=== PATIENT | male | born 1960 | race Caucasian/White ===

== ENCOUNTER 2019-09-17 07:59 | Outpatient (CLI) | payer BC ==
--- NOTE | 2019-09-17 08:33 | RAD ---
XR Cervical Spine 4 View Min History: Cervical spondylosis Comparison: Cervical spine MRI 2014 Findings: Moderate degenerative disc space height loss at C5/C6 with mild narrowing at C3/C4 and C4/C 5. Large posterior disc osteophyte complex at C5-6 and moderate disc osteophyte complexes C3/C4 and C4/C5. No significant listhesis. Prevertebral soft tissues are unremarkable. Posterior ribs are intact. Open-mouth odontoid view is normal. No abnormal translation with flexion or extension. Impression: Multilevel spondylosis of the mid to lower cervical spine without abnormal translation wi th flexion or extension.
--- NOTE | 2019-09-17 09:11 | MRI ---
MRI Cervical Spine WO Con History: Cervical spondylosis. Comparison: Radiograph same day Findings: Cerebral tonsils terminate at the foramen magnum. Cord signal is normal. No marrow infiltrative process. Paraspinal musculature is symmetric. Levels are as follows: C2/C3: Minimal uncinate process hypertrophy. No neural foraminal or spinal canal narrowing. Mild left and moderate right hypertrophic facet arthropathy with right subcortical facet cysts. No significant neural foraminal or spinal canal narrowing. C3/C4: Moderate disc desiccation and height loss. Broad-based posterior disc osteophyte complex great est in the right paracentral zone and lateral recess. Mild hypertrophic facet arthrosis. Spinal canal measures approximately 12 mm. Mild left neural foraminal narrowing. C4/C5: Mild disc desiccation and height loss. Moderate circumferential disc osteophyte complex. Mild effacement of the ventral CSF space with the spinal canal measuring approximately 9 mm. Moderate to severe right and mild left neural foraminal narrowing. C5/C6: Moderate to advanced degenerative disc space height loss with circumferential disc osteophyte complex greatest in the left lateral recess and subforaminal zone. Moderate to severe left and moderate right neural foraminal narrowing. Mild hypertrophic facet arthrosis. The spinal canal measur es approximately 11 mm. C6/C7: Normal disc height and hydration. No neural foraminal or spinal canal narrowing. C7/T1: Normal disc height and hydration. No neural foraminal or spinal canal narrowing. Impression: Moderate spondylosis mid-lower lower cervical spine as described, greatest at C5/C6.
== END 2019-09-17 08:00 | disposition home or self-care (01) ==
LOC: TBSIIMAG 07:59
PROVIDERS: ATTEND Anesthesiology Pain Medicine
DX: M47.812 Spondylosis without myelopathy or radiculopathy, cervical region (principal)
CPT/HCPCS: 72050; 72141